=== PATIENT | female | born 2000 | race Caucasian/White ===

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

== ENCOUNTER → 2021-02-11 10:30 | Outpatient (BNVA) | payer OTHER, SELFPAY | PROVIDERS: Family Provider Pediatrics Adolescent Medicine; PCP Physician Assistant; Visit Provider Nurse Practitioner Women's Health | DX: Z11.3 Encounter for screening for infections with a predominantly sexual mode of transmission (principal); Z13.1 Encounter for screening for diabetes mellitus; R63.5 Abnormal weight gain; Z13.228 Encounter for screening for other metabolic disorders; Z13.0 Encounter for screening for diseases of the blood and blood-forming organs and certain disorders involving the immune mechanism; Z01.419 Encounter for gynecological examination (general) (routine) without abnormal findings; N94.6 Dysmenorrhea, unspecified; F32.9 Major depressive disorder, single episode, unspecified | CPT/HCPCS: 80053; 83036; 84439; 84443; 85025; 87491; 87591; 87661 ==